=== PATIENT | female | born 1955 | race Two or more races ===

== ENCOUNTER 2019-03-09 11:00 | Day surgery (SDC) | payer MEDICARE, OTHER ==
[~2019-03-09 11:00] MED LIST: CEFAZOLIN 2 GM/50 ML (PMX) 50 ML IVPB
[2019-03-09 12:07] LABS: ADD MAN DIFF? NO
[2019-03-09 12:11] LABS: WHITE BLOOD COUNT 6.6 10^3/ul (4.8-10.8)
[2019-03-09 12:11] LABS: BASOPHIL # 0.1 10^3/ul (0.0-0.1); BASOPHILS % 0.8 % (0.0-2.0); EOSINOPHILS # 0.1 10^3/ul (0.0-0.5); HEMATOCRIT 36.3 % (37.0-47.0); HEMOGLOBIN 11.4 g/dl (12.0-16.0); LYMPHOCYTES # 2.1 10^3/ul (0.8-2.9); LYMPHOCYTES % 32.2 % (15.0-51.0); MEAN CORPUSCULAR HGB CONC 31.4 g/dl (32.0-37.0); MEAN CORPUSCULAR VOLUME 82.7 fl (82.0-101.0); MEAN PLATELET VOLUME 9.8 fl (7.4-10.4); MONOCYTE # 0.6 10^3/ul (0.3-0.9); MONOCYTES % 9.4 % (0.0-11.0); NEUTROPHIL # 3.6 10^3/ul (1.6-7.5); PLATELET COUNT 305 10^3/UL (140-415); RED BLOOD COUNT 4.39 10^6/ul (4.20-5.40); RED CELL DISTRIBUTION WIDTH 13.8 % (11.5-14.5)
[2019-03-09] MEDS ORDERED: LACTATED RINGER'S 1,000 ML IV ×2 (12:30→14:30)
[2019-03-09 12:31] LABS: INR 0.94; PROTIME 12.7 Sec (11.9-14.9)
[2019-03-09 12:32] LABS: PARTIAL THROMBOPLASTIN TIME 30.9 Sec (23.0-35.0)
[2019-03-09] MEDS ORDERED: FENTAnyl 50 MCG/ML VIAL (12:51)
[2019-03-09] MEDS ORDERED: PROPOFOL 20 ML (12:51)
[2019-03-09] MEDS ORDERED: MIDAZOLAM 1 MG/ML 2 ML INJ (12:51)
[2019-03-09] MEDS ORDERED: LIDOCAINE 2% (SDV) 5 ML INJ (12:51)
[2019-03-09] MEDS ORDERED: ALBUTEROL 0.083% (NEB) 2.5 MG/3 ML AMP HHN (13:30)
[2019-03-09] MEDS ORDERED: OXYCODONE/ACETAMINOPHEN (5/325) TAB PO (13:30)
[2019-03-09] MEDS ORDERED: FENTAnyl 50 MCG/ML VIAL IV ×3 (13:30)
[2019-03-09] MEDS ORDERED: LABETALOL HCL 20MG INJ IV (13:30)
[2019-03-09] MEDS ORDERED: ONDANSETRON 4 MG INJ IV (13:30)
[2019-03-09] MEDS ORDERED: MIDAZOLAM 1 MG/ML 2 ML INJ IV (13:30)
[2019-03-09] MEDS ORDERED: hydrALAzine 20 MG INJ IV (13:30)
[2019-03-09] MEDS ORDERED: LIDOCAINE 1% (MPF) 30 ML INJ (13:41)
[2019-03-09] MEDS ORDERED: CEFAZOLIN 1 GM INJ (14:06)
[2019-03-09] MEDS: LIDOCAINE 1%/EPI 30 ML INJ (14:10)
[2019-03-09] MEDS: NEOMYC/POLYMYX/BACIT 30 GM OINT (14:10)
[2019-03-09] MEDS: OXYCODONE/ACETAMINOPHEN (5/325) TAB PO (14:42)
== END 2019-03-09 15:56 | disposition home or self-care (01) ==
LOC: SDS 11:00
DX: M65.341 Trigger finger, right ring finger (principal); I10 Essential (primary) hypertension; J45.909 Unspecified asthma, uncomplicated
CPT/HCPCS: 26055; 71045; 85025; 85610; 85730; 93005